=== PATIENT | male | born 1975 | race Caucasian/White ===

== ENCOUNTER 2021-03-04 12:45 | Emergency (ER) | payer MEDICAID ==
--- NOTE | 2021-03-04 13:12 | EDM.PDOC ---
ED HPI GENERAL MEDICAL PROBLEM - General Stated Complaint: NOT EATING SINCE SATURDAY Time Seen by Provider: 03/04/21 13:04 Source of Information: Reports: Patient History Limitations: Reports: No Limitations - History of Present Illness INITIAL COMMENTS - FREE TEXT/NARRATIVE: pt c/o worsening cellulitis at left thigh that started about 5 days ago, was seen at [facility] 3 days ago and started on bactrim , and since yesterday he has been having intermittent episodes of confusion, denies fever, report chills , denies any other associated sx he has Hx of diabetes mellitus and has not been monitoring his BS, however reports compliance with taking his meds, he report being on insulin in the past and that he did not like it and was switched to PO meds, denies Hx of DKA, 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 left thigh Pain Score (Numeric/FACES): 7 - Related Data Allergies Allergy/AdvReac Type Severity Reaction Status Date / Time No Known Allergies Allergy Verified 08/22/13 12:13 Home Meds: Home Meds Hydrocodone/Acetaminophen [Hydrocodon-Acetaminophen 5-500] 1 tab PO Q4H PRN #24 tablet 08/22/13 [Rx] Lisinopril 20 mg PO DAILY 08/22/13 [History] ALPRAZolam [Alprazolam ER] 1 mg PO DAILY PRN 03/04/21 [History] Docusate Sodium [Dok] 100 mg PO BID 03/04/21 [History] Naproxen 500 mg PO Q12H PRN 03/04/21 [History] Pregabalin [Lyrica] 150 mg PO TID 03/04/21 [History] Sulfamethoxazole/Trimethoprim [Sulfamethoxazole-Tmp Ds Tablet] 1 each PO BID 03/04/21 [History] tiZANidine [Zanaflex] 4 mg PO Q8H PRN 03/04/21 [History] ED ROS GENERAL - Review of Systems Review Of Systems: See Below Constitutional: Reports: Chills, Fatigue. Denies: Fever HEENT: Reports: No Symptoms Respiratory: Reports: No Symptoms Cardiovascular: Reports: No Symptoms GI/Abdominal: Reports: No Symptoms Musculoskeletal: Reports: No Symptoms Skin: Reports: Erythema, Other (erythema and induration over the entier medial pedro) Neurological: Reports: Confusion. Denies: Headache, Numbness, Paresthesia, Syncope Psychiatric: Reports: Confusion Immunologic: Reports: No Symptoms ED EXAM, GENERAL - Physical Exam Exam: See Below Exam Limited By: No Limitations General Appearance: Alert, No Apparent Distress, Other (pt is oriented here X 3) Eye Exam: Bilateral Eye: Normal Inspection Nose: Normal Inspection Throat/Mouth: Normal Inspection, Normal Oropharynx Head: Atraumatic, Normocephalic Neck: Normal Inspection Respiratory/Chest: No Respiratory Distress, Lungs Clear, Normal Breath Sounds Cardiovascular: Normal Peripheral Pulses, Regular Rate, Rhythm GI/Abdominal: Normal Bowel Sounds, Soft, Non-Tender Back Exam: Normal Inspection Extremities: Normal Inspection, Normal Range of Motion Neurological: Alert, Oriented, CN II-XII Intact, No Motor/Sensory Deficits Skin Exam: Warm Course - Vital Signs Text/Narrative:: labs results were explained to pt. pt is likely going into DKA likely trigger by non compliance and LLE cellulitis , also has hyponitremia, likely pseudo type. there is no available staff to admit pt here , subsequently contacted [facility] and Dr. Douglas was kindly in acceptance of pt care. pt is being hydrated / on second liter now, was given 20 units insulin IV and will be started on dripp, also will be covered with Zosyn and vancomycin for his cellulitis. Last Recorded V/S: Last Vital Signs Temp 36.4 C 03/04/21 12:45 Pulse 73 03/04/21 12:45 Resp 17 03/04/21 12:45 BP 106/63 03/04/21 12:45 Pulse Ox 95 03/04/21 12:45 - Orders/Labs/Meds Orders: Active Orders 24 hr Category Date Time Status CULTURE BLOOD [BC] Urgent Lab 03/04/21 13:35 Received CULTURE BLOOD [BC] Urgent Lab 03/04/21 13:40 Received Dextrose 50% in Water Med 03/04/21 14:11 Active 50 ml IVPUSH ASDIRECTED PRN Glucagon,Human Recombinant [GlucaGen] Med 03/04/21 14:11 Active 1 mg IM ASDIRECTED PRN Blood Culture x2 Reflex Set [OM.PC] Urgent Oth 03/04/21 13:21 Ordered Medication Orders Dextrose/Water (50% Dextrose In Water 50 Ml Syringe) 50 ml IVPUSH ASDIRECTED PRN PRN Reason: Hypoglycemia Glucagon (Glucagon,Human Recombinant 1 Mg Vial) 1 mg IM ASDIRECTED PRN PRN Reason: Hypoglycemia Labs: Laboratory Tests 03/04/21 03/04/21 03/04/21 Range/Units 13:11 13:35 13:35 WBC 15.4 H (3.2-10.1) x10-3/uL RBC 4.18 (3.90-5.90) x10(6)uL Hgb 12.3 L (12.9-17.7) g/dL Hct 37.6 L (38.3-50.1) % MCV 90.0 (80.8-98.7) fL MCH 29.5 (27.0-33.3) pg MCHC 32.8 (28.7-35.3) g/dL RDW 13.3 (12.4-15.0) % Plt Count 285 (117-477) x10(3)uL MPV 8.7 (6.7-11.0) fL Add Manual Diff Yes Neutrophils % (Manual) 78 (46-82) % Band Neutrophils % 5 (0-6) % Lymphocytes % (Manual) 7 L (13-37) % Monocytes % (Manual) 8 (4-12) % Eosinophils % (Manual) 1 (0-5) % Metamyelocytes % 1 H (0-0) % Sodium 119 L* (135-145) mmol/L Potassium 4.1 (3.5-5.3) mmol/L Chloride 82 L* (100-110) mmol/L Carbon Dioxide 22 (21-32) mmol/L BUN 64 H (7-18) mg/dL Creatinine 4.9 H* (0.70-1.30) mg/dL Est Cr Clr Drug Dosing 18.84 mL/min Estimated GFR (MDRD) 13 L (>60) BUN/Creatinine Ratio 13.1 (9-20) Glucose 733 H* (80-116) mg/dL POC Glucose > 600 H* (80-116) mg/dL Lactic Acid (0.4-2.0) mmol/L Calcium 8.4 L (8.6-10.2) mg/dL Total Bilirubin 0.7 (0.1-1.3) mg/dL AST 43 H (5-25) IU/L ALT 60 H (12-36) U/L Alkaline Phosphatase 146 H (56-112) IU/L Total Protein 7.4 (6.0-8.0) g/dL Albumin 2.4 L (3.5-5.2) g/dL Globulin 5.0 g/dL Albumin/Globulin Ratio 0.5 06/12/21 Range/Units 13:35 WBC (3.2-10.1) x10-3/uL RBC (3.90-5.90) x10(6)uL Hgb (12.9-17.7) g/dL Hct (38.3-50.1) % MCV (80.8-98.7) fL MCH (27.0-33.3) pg MCHC (28.7-35.3) g/dL RDW (12.4-15.0) % Plt Count (117-477) x10(3)uL MPV (6.7-11.0) fL Add Manual Diff Neutrophils % (Manual) (46-82) % Band Neutrophils % (0-6) % Lymphocytes % (Manual) (13-37) % Monocytes % (Manual) (4-12) % Eosinophils % (Manual) (0-5) % Metamyelocytes % (0-0) % Sodium (135-145) mmol/L Potassium (3.5-5.3) mmol/L Chloride (100-110) mmol/L Carbon Dioxide (21-32) mmol/L BUN (7-18) mg/dL Creatinine (0.70-1.30) mg/dL Est Cr Clr Drug Dosing mL/min Estimated GFR (MDRD) (>60) BUN/Creatinine Ratio (9-20) Glucose (80-116) mg/dL POC Glucose (80-116) mg/dL Lactic Acid 1.7 (0.4-2.0) mmol/L Calcium (8.6-10.2) mg/dL Total Bilirubin (0.1-1.3) mg/dL AST (5-25) IU/L ALT (12-36) U/L Alkaline Phosphatase (56-112) IU/L Total Protein (6.0-8.0) g/dL Albumin (3.5-5.2) g/dL Globulin g/dL Albumin/Globulin Ratio Meds: Medications Generic Name Dose Route Start Last Admin Trade Name Freq PRN Reason Stop Dose Admin Dextrose/Water 50 ml 03/04/21 14:11 50% Dextrose In Water 50 Ml Syringe IVPUSH ASDIRECTED PRN Hypoglycemia Glucagon 1 mg 03/04/21 14:11 Glucagon,Human Recombinant 1 Mg Vial IM ASDIRECTED PRN Hypoglycemia Discontinued Medications Generic Name Dose Route Start Last Admin Trade Name Freq PRN Reason Stop Dose Admin Sodium Chloride 1,000 mls @ 999 mls/hr 03/04/21 13:30 03/04/21 13:45 Normal Saline IV 03/04/21 14:30 999 mls/hr .BOLUS ONE Administration Insulin Human Regular 20 unit 03/04/21 14:11 03/04/21 14:24 Insulin Regular, Human 100 Units/Ml 3 Ml Vial IV 03/04/21 14:12 20 unit ONETIME ONE Administration Departure - Departure Time of Disposition: 14:56 Disposition: DC/Tfer to [facility] Clinical Impression: DKA (diabetic ketoacidoses) - Discharge Information Sepsis Event Note (ED) - Focused Exam Vital Signs: Vital Signs Temp Pulse Resp BP Pulse Ox 03/04/21 12:45 36.4 C 73 17 106/63 95 - My Orders Last 24 Hours: My Active Orders 03/04/21 13:21 Blood Culture x2 Reflex Set [OM.PC] Urgent 03/04/21 13:35 CULTURE BLOOD [BC] Urgent 03/04/21 13:40 CULTURE BLOOD [BC] Urgent 03/04/21 14:11 Dextrose 50% in Water 50 ml IVPUSH ASDIRECTED PRN Glucagon,Human Recombinant [GlucaGen] 1 mg IM ASDIRECTED PRN - Assessment/Plan Last 24 Hours: My Active Orders 03/04/21 13:21 Blood Culture x2 Reflex Set [OM.PC] Urgent 03/04/21 13:35 CULTURE BLOOD [BC] Urgent 03/04/21 13:40 CULTURE BLOOD [BC] Urgent 03/04/21 14:11 Dextrose 50% in Water 50 ml IVPUSH ASDIRECTED PRN Glucagon,Human Recombinant [GlucaGen] 1 mg IM ASDIRECTED PRN
[2021-03-04] MEDS ORDERED: Sodium Chloride 0.9% 1,000 ML IV ONE ×2 (13:30→14:50)
[2021-03-04] MEDS ORDERED: Insulin Regular, Human 100 Units/ML 3 ML Vial IV ONE (14:11)
[2021-03-04] MEDS ORDERED: Glucagon,Human Recombinant 1 MG Vial IM PRN (14:11)
[2021-03-04] MEDS ORDERED: 50% Dextrose in Water 50 ML Syringe IVPUSH PRN (14:11)
[2021-03-04] MEDS ORDERED: Insulin Regular in 0.9 % NACL 100 ML IV SCH ×2 (14:45→15:00)
[2021-03-04] MEDS ORDERED: VANCOmycin 1 GM/200 ML 1 GM in Premix Bag 1 BAG IV ONE (14:56)
[2021-03-04] MEDS ORDERED: Piperacillin/Tazobactam 3.375 GM in Sodium Chloride 0.9% 50 ML IV SCH (15:00)
[2021-03-04 15:23] LABS: PCO2 ARTERIAL,POC 34 mmHg (35-48); PH ARTERIAL,POC 7.3 pH (7.35-7.45); PO2 ARTERIAL,POC 74 mmHg (83-108)
[2021-03-04] MEDS ORDERED: Sodium Chloride 0.9% 1,000 ML IV SCH (16:15)
[2021-03-04 17:29] VITALS: BP 146/98; PULSE 86
== END 2021-03-04 17:27 | disposition critical access hospital (66) ==
LOC: FB.ED 12:45
DX: E11.10 Type 2 diabetes mellitus with ketoacidosis without coma (principal)
CPT/HCPCS: 36415; 80053; 81001; 82803; 82947; 83605; 85025; 87040; 96365; 96367; 99284; J1815; J2543; J3370; J7030